=== PATIENT | female | born 1960 | race Caucasian/White ===

== ENCOUNTER 2024-03-23 10:42 | Emergency (ER) | payer MEDICAID ==
[2024-03-23 11:01] VITALS: BP 181/101; O2SAT 97
--- NOTE | 2024-03-23 11:03 | ED Physician Documentation ---
History of Present Illness - Stated complaint Stated Complaint: FEMALE - Chief complaint Chief Complaint: Abd Pain - History obtained from History obtained from: Patient - History of Present Illness Timing: Prior to arrival - Additonal information Additional information: Patient is a 64-year-old female with past medical history of hypertension presents to the emergency department with rectal pain. She suspects she has been having hemorrhoids going on for about a week. She has been trying Butt cream to help with her symptoms with no significant relief. She picked up an quso-dlc-labzxzi H prep medication to help with pain as well with minimal improvement. She notes she does not feel she is straining to have a bowel movement but has not been having diarrhea or softer bowel movements recently. She notes no feelings of constipation. She denies any bleeding associated with her hemorrhoids. She has not had these before she denies any abdominal pain nausea vomiting or fevers as well. 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, Other - Present Medications Home Medications: Ambulatory Orders Medication Instructions Recorded Confirmed Docusate Sodium [Dulcolax Stool 100 mg PO BID #60 cap 03/23/24 Softener] Hydrocortisone [Anusol-Hc] 30 gm RC BID 10 Days #600 gm 03/23/24 - Allergies Allergies/Adverse Reactions: Allergies Allergy/AdvReac Type Severity Reaction Status Date / Time most pain medications AdvReac Emesis Uncoded 03/23/24 10:57 - Social History Does the pt smoke?: Yes Smoking Status: Current every day smoker Does the pt drink ETOH?: No Does the pt have substance abuse?: No Substance Use and Type: Marijuana - Immunizations Immunizations are current?: Yes PD ED PE NORMAL - Vitals Vital signs reviewed: Yes - General General: Alert and oriented X 3 - HEENT HEENT: Atraumatic - Neck Neck: Supple, no meningeal sign - Cardiac Cardiac: RRR, No murmur, No gallop, No rub - Respiratory Respiratory: No respiratory distress, Clear bilaterally - Abdomen Abdomen: Normal bowel sounds, Non tender - 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 Significant tenderness on light touch. No signs of prolapse of the rectum. No palpable internal hemorrhoids on examination. ) - Derm Derm: Normal color - Extremities Extremities: No deformity - Psych Psych: Normal mood Results - Vitals Vitals: Vital Signs - 24 hr 03/23/24 10:51 Temperature 36.8 C Heart Rate 77 Respiratory 20 Rate Blood Pressure 181/101 H O2 Saturation 97 Oxygen O2 Source Room air PD Medical Decision Making - ED course Complexity details: d/w patient ED course: Patient is a 64-year-old female presenting to the emergency department with rectal pain. Patient's suspect symptoms are secondary to hemorrhoids. She feels pain is uncontrolled at this time. She has been using Butt cream and [id number]-pcu-[id number] H prep for pain control at home with no significant improvement and feels her hemorrhoids are worsening. She denies any bleeding today with the hemorrhoids but does report feelings of worsening swelling and hardening to the hemorrhoids. Vital stable on arrival. Physical exam does show multiple hemorrhoids around rectum nonbleeding nonthrombosed. Significant tenderness on light touch. Given physical exam findings symptoms most likely secondary to hemorrhoids no need for lancing of hemorrhoids here in the emergency department given nonbleeding nonthrombosed. Discussed with patient will give Anusol cream for [id number]-dxsieyr recommending patient also start a laxative to encourage softer bowel movements to prevent worsening of hemorrhoids and additionally recommending sits baths soaks at home to help with pain control. Patient agreeable with this plan will try these recommendations at home for pain and symptom control. Instructed patient to return to the emergency department with any bleeding worsening pain fevers or abdominal pain. Patient understands and is agreeable with this plan. Departure - Departure Disposition: 01 Home, Self Care Clinical Impression: Hemorrhoid Condition: Good Instructions: Anusol Ointment, ED Hemorrhoids Comments: You were seen here in the emergency department for your external hemorrhoids. Your workup here showed nonthrombosed nonbleeding hemorrhoids these are reassuring findings I have prescribed an ointment for you that you can apply [id number] for your pain control. This has some steroid to help with pain and drinking the hemorrhoids. I have also given you a laxative to help with softer stools at home to prevent straining and worsening the hemorrhoids. Additionally you can try [id number]-[id number] sitz bath's to help with symptoms. Sitz bath with epsom salt and magnesium [facility] and sit in a bath of warm water with this to help with pain controal. Return to ED with any abdominal pain bleeding or worsening pain with hemorrhoids. Follow-up with PCP in outpatient setting to ensure resolution of symptoms Forms: PCP List
== END 2024-03-23 11:54 | disposition home or self-care (01) ==
LOC: ED 10:42
DX: K64.9 Unspecified hemorrhoids (principal); I10 Essential (primary) hypertension; J44.9 Chronic obstructive pulmonary disease, unspecified; M79.7 Fibromyalgia; M06.9 Rheumatoid arthritis, unspecified; F17.200 Nicotine dependence, unspecified, uncomplicated
CPT/HCPCS: 99281; 99283